=== PATIENT | male | born 1955 | race American Indian/Alaskan Native ===

== ENCOUNTER 2018-02-09 09:48 | Day surgery (SDC) | payer OTHER ==
[2018-02-09] MEDS ORDERED: NACL 0.9% 1000 ML 1,000 ML IV SCH (11:00)
[2018-02-09] MEDS ORDERED: WATER FOR IRRIG STERILE IR ONE (11:25)
[2018-02-09] MEDS ORDERED: WATER FOR IRRIG STERILE ONE (12:13)
--- NOTE | 2018-02-09 12:32 | Anesthesia Consultation ---
Anesthesia Consult and Med Hx Date of service: 02/09/18 - Airway Anesthetic Teeth Evaluation: Chipped (front) ROM Head & Neck: Adequate Mental/Hyoid Distance: Adequate Mallampati Class: Class IV Intubation Access Assessment: Possibly Difficult - Pulmonary Exam CTA: Yes - Cardiac Exam Cardiac Exam: RRR - Pre-Operative Health Status ASA Pre-Surgery Classification: ASA1 Proposed Anesthetic Plan: MAC
--- NOTE | 2018-02-09 12:32 | Anesthesia Day of Surgery ---
Anesthesia Day of Surgery - Day of Surgery Patient Examined: Yes Patient H&P Reviewed: Yes Patient is NPO: Yes
--- NOTE | 2018-02-09 13:01 | Operative Report ---
Operative Report Operative Report: Date of procedure: 02/09/2018 Procedure: Colonoscopy with Snare polypectomy and submucosal injection. Attending physician: Ky Akbar MD Child Care Giver: Ky Akbar MD Indication: Patient is a 62-year-old male who presents for screening colonoscopy. This colonoscopy serves to evaluate patient so that treatment may be directed based on the findings. Consent: Informed consent was obtained after advising the patient and family regarding nature of this procedure, its indications, potential benefits as well as possible complications including but not limited to bleeding perforation and adverse reaction to medication, infection as well as other cardiopulmonary complications. An informed written and verbal consent was then obtained after due opportunity was provided for questions and answers. Monitoring: Patient was monitored continuously with pulse oximetry and electrocardiographic recordings as well as blood pressure recordings. Vital signs remained stable throughout this procedure with no untoward events. Preoperative assessment: Patient was assessed immediately prior to this procedure for capacity to tolerate monitored anesthesia care and moderate sedation as well as general anesthesia. Patient's ASA classification is 2, Mallampati class is 2, Hyomental distance is 3. Instrument: [employer] video colonoscope. Medications: Propofol given intravenously in divided doses. For details please refer to anesthesia records. Description of procedure: Patient was placed in the left lateral decubitus position after achieving sedation, a digital rectal examination was performed following which the colonoscope was introduced into the anal verge and advanced to the cecum which was identified by the cecal valve, the appendiceal orifice, as well as by the cecal strap and direct transillumination. The colonoscope was subsequently withdrawn with careful inspection of all mucosal surfaces. Patient tolerated this procedure well and was subsequently taken to the recovery room. The following findings were noted. Findings: Patient had a broad-based 1.5 cm sessile polyp seen in the proximal ascending colon. This was elevated with submucosal injection of saline and removed by snare electrocautery. Patient had retained stool in various sections of the colon. Patient had a cecal lipoma measuring about 2x1.5 cm. Patient was noted to have internal hemorrhoids seen on the retroflexed view at the anal verge. Impression: Proximal ascending colon polyp status post snare polypectomy and submucosal injection Retained stool Cecal Lipoma Internal hemorrhoids. Plan: Follow pathology report. High-fiber diet. Consider repeat colonoscopy in 1 year due to substantial retained stool .
[2018-02-09] MEDS ORDERED: DIPRIVAN 10 MG/ML IV ONE ×2 (13:02)
--- NOTE | 2018-02-09 13:02 | Discharge Summary ---
Short Stay Discharge Plan Activity: advance as tolerated Weight Bearing Status: Weight Bear as Tolerated Diet: regular Follow up with: PRIMARY CARE, [Primary Care Provider] - 7 Days
[2018-02-09 13:37] VITALS: BP 136/89
== END 2018-02-09 13:45 | disposition home or self-care (01) ==
LOC: GIO 09:48
PROVIDERS: ATTEND Internal Medicine Gastroenterology
DX: K63.5 Polyp of colon (principal); D17.5 Benign lipomatous neoplasm of intra-abdominal organs; K59.00 Constipation, unspecified; K64.8 Other hemorrhoids; Z86.010 Personal history of colon polyps
CPT/HCPCS: 45381; 45385; 88305; J2704; J7030